=== PATIENT | female | born 1970 | race Caucasian/White ===

== ENCOUNTER 2019-07-25 09:39 | Emergency (ER) | payer OTHER, SELFPAY ==
[2019-07-25 09:50] VITALS: BP 182/96; PULSE 83; RESP 10; TEMP 37.6; O2SAT 100
--- NOTE | 2019-07-25 10:19 | ED.GENADULT ---
HPI - General Adult General Chief complaint: Shortness of Breath/Dyspnea Stated complaint: sore throat, ear pain, fever Time Seen by Provider: 07/25/19 10:05 Source: patient Mode of arrival: ambulatory Limitations: no limitations History of Present Illness HPI narrative: Patient is a 49-year-old female who presents to emergency department for evaluation of upper respiratory symptoms with bilateral ear pain congestion and sore throat subjective fever over the last 4 to 5 days was seen Sunday started on amoxicillin no she continues to have ear pain presents noting that she needs a note for work patient denies any dyspnea. Cough sick contacts works at the [employer]. Denies vomiting or diarrhea Related Data Home Medications Medication Instructions Recorded Confirmed benazepril 07/25/19 Allergies Allergy/AdvReac Type Severity Reaction Status Date / Time Sulfa (Sulfonamide Allergy Anaphylaxis Verified 07/25/19 09:57 Antibiotics) codeine AdvReac Vomiting Verified 07/25/19 09:57 Review of Systems Review of Systems: All systems reviewed & are unremarkable except as noted in HPI and below PMFSH Past Medical History Medical History (Updated 07/25/19 @ 10:25 by Danis Conklin PA-C) Asthma Exam Narrative: Exam Narrative: GENERAL: Well-appearing, well-nourished, and in no acute distress. HEAD: Normocephalic, atraumatic. EYES: PERRLA and EOMI. ENT: Nares clear, no rhinorrhea or epistaxis. Mucous membranes moist. Oropharynx with tonsillar hypertrophy and without exudate or other lesions. Bilateral TMs pearly smith nonbulging NECK: Supple. No adenopathy or masses. CHEST: Clear to auscultation. No respiratory distress. No wheezes rales or rhonchi HEART: Regular rate and rhythm. No murmur heard. Normal peripheral pulses. ABDOMEN: Soft, nontender, nondistended EXTREMITIES: Normal range of motion. No edema. SKIN: Warm, dry, no rash. NEURO: No focal deficits. Alert and oriented x3. PSYCH: Normal mood and affect. Course Course Emergency Course: Patient in the room with likely upper respiratory symptoms could be viral in nature afebrile nontoxic-appearing no distress Vital Signs Vital signs: Vital Signs Temperature 99.6 F 07/25/19 09:50 Pulse Rate 83 07/25/19 09:50 Respiratory Rate 10 L 07/25/19 09:50 Blood Pressure 182/96 H 07/25/19 09:50 Pulse Oximetry 100 07/25/19 09:50 Temperature 99.6 F 07/25/19 09:50 Pulse Rate 83 07/25/19 09:50 Respiratory Rate 10 L 07/25/19 09:50 Blood Pressure 182/96 H 07/25/19 09:50 Pulse Oximetry 100 07/25/19 09:50 Medical Decision Making MDM Narrative Medical decision making narrative: Patient with likely viral syndrome versus allergies advised that she could potentially have Codafed unsure given the array of symptoms given that she does have upper respiratory symptoms advised to self quarantine for 14 days and to follow with primary care provided with reasons to return Vital Signs Vital Signs: Vital Signs Temperature 99.6 F 07/25/19 09:50 Pulse Rate 83 07/25/19 09:50 Respiratory Rate 10 L 07/25/19 09:50 Blood Pressure 182/96 H 07/25/19 09:50 Pulse Oximetry 100 07/25/19 09:50 Temperature 99.6 F 07/25/19 09:50 Pulse Rate 83 07/25/19 09:50 Respiratory Rate 10 L 07/25/19 09:50 Blood Pressure 182/96 H 07/25/19 09:50 Pulse Oximetry 100 07/25/19 09:50 Lab Data Labs: Influenza A Screen Negative Reference Range: Negative Influenza B Screen Negative Reference Range: Negative Strep Screen Presumptive Negative *(Reference Range: Negative)* Discharge Plan Discharge Clinical Impression: Acute upper respiratory infection Patient Disposition: Home, Self-Care Condition: Stable Instructions: Antibiotic Form, Upper Respiratory Infection (ED) Additional Instructions: Follow up with your primary care provider within 14 days. Go to ER f
--- NOTE | 2019-07-25 11:06 | ED.GENADULT ---
HPI - General Adult General Chief complaint: Shortness of Breath/Dyspnea Stated complaint: sore throat, ear pain, fever Time Seen by Provider: 07/25/19 10:05 Source: patient Mode of arrival: ambulatory History of Present Illness HPI narrative: Patient is a 49-year-old female who presents to emergency department for evaluation of Related Data Home Medications Medication Instructions Recorded Confirmed benazepril 07/25/19 Allergies Allergy/AdvReac Type Severity Reaction Status Date / Time Sulfa (Sulfonamide Allergy Anaphylaxis Verified 07/25/19 09:57 Antibiotics) codeine AdvReac Vomiting Verified 07/25/19 09:57 [facility] Past Medical History Medical History (Updated 07/25/19 @ 10:25 by Danis Conklin PA-C) Asthma Course Vital Signs Vital signs: Vital Signs Temperature 99.6 F 07/25/19 09:50 Pulse Rate 83 07/25/19 09:50 Respiratory Rate 10 L 07/25/19 09:50 Blood Pressure 182/96 H 07/25/19 09:50 Pulse Oximetry 100 07/25/19 09:50 Temperature 99.6 F 07/25/19 09:50 Pulse Rate 83 07/25/19 09:50 Respiratory Rate 10 L 07/25/19 09:50 Blood Pressure 182/96 H 07/25/19 09:50 Pulse Oximetry 100 07/25/19 09:50 Medical Decision Making Vital Signs Vital Signs: Vital Signs Temperature 99.6 F 07/25/19 09:50 Pulse Rate 83 07/25/19 09:50 Respiratory Rate 10 L 07/25/19 09:50 Blood Pressure 182/96 H 07/25/19 09:50 Pulse Oximetry 100 07/25/19 09:50 Temperature 99.6 F 07/25/19 09:50 Pulse Rate 83 07/25/19 09:50 Respiratory Rate 10 L 07/25/19 09:50 Blood Pressure 182/96 H 07/25/19 09:50 Pulse Oximetry 100 07/25/19 09:50 Lab Data Labs: Influenza A Screen Negative Reference Range: Negative Influenza B Screen Negative Reference Range: Negative Strep Screen Presumptive Negative *(Reference Range: Negative)* Discharge Plan Discharge Clinical Impression: Acute upper respiratory infection Patient Disposition: Home, Self-Care Condition: Stable Instructions: Antibiotic Form, Upper Respiratory Infection (ED) Additional Instructions: Follow up with your primary care provider within 14 days. Go to ER for shortness of breath, difficulty breathing, chest pain, fever/chills, weakness, nauseau/vomitting, etc. or any other concerns. Stay well-hydrated Take any prescribed medications as directed. Follow patient education sheets If you do not have a drug allergy to tylenol or motrin and can tolerate it then take tylenol or motrin as needed for discomfort/pain. Prescriptions: New montelukast [Singulair] 10 mg tablet 10 mg PO ONCE Qty: 7 RF: 0 cetirizine [24Hour Allergy] 10 mg tablet 10 mg PO DAILY PRN (Reason: allergy symptoms) Qty: 7 RF: 0 No Action benazepril 40 mg Tablet RF: 0 Follow-up/Referrals: UNKNOWN,DOCTOR [Primary Care Provider] - Stand Alone Forms: Work/School Release IP Discharge Date/Time: 07/25/19 10:42
== END 2019-07-25 10:42 | disposition home or self-care (01) ==
PROVIDERS: Emergency Provider Emergency Medicine
DX: J06.9 Acute upper respiratory infection, unspecified (principal); Z20.828 Contact with and (suspected) exposure to other viral communicable diseases
CPT/HCPCS: 87081; 87804; 87880; 99283

== ENCOUNTER 2023-01-15 09:40 | Outpatient (CLI) | payer OTHER, SELFPAY ==
--- NOTE | 2023-01-15 10:30 | NEURO_ITS ---
Impression: Patient reports paresthesias of left hand. # Moderate left Carpal Tunnel Syndrome. # Normal needle/EMG exam. # Clinical correlation recommended Nerve Conduction Studies Anti Sensory Summary Table Stim Site NR Peak (ms) P-T Amp (?V) Site1 Site2 Delta-P (ms) Dist (cm) Dioni (m/s) Left Median Anti Sensory (2-3nd Digit) Wrist 5.3 52.3 Wrist 2-3nd Digit 5.3 14.0 26 Wrist 5.8 39.0 Wrist 2-3nd Digit 5.3 14.0 26 Left Radial Anti Sensory (Base 1st Digit) Wrist 1.7 60.8 Wrist Base 1st Digit 1.7 0.0 Left Ulnar Anti Sensory (5th Digit) Wrist 2.6 52.6 Wrist 5th Digit 2.6 14.0 54 Motor Summary Table Stim Site NR Onset (ms) O-P Amp (mV) Site1 Site2 Delta-0 (ms) Dist (cm) Dioni (m/s) Left Median Motor (Abd Poll Brev) Wrist 4.8 3.4 Elbow Wrist 4.1 22.0 54 Elbow 8.9 4.3 Left Ulnar Motor (Abd Dig Minimi) Wrist 2.2 10.3 A Elbow Wrist 5.3 30.0 57 A Elbow 7.5 7.9 B Elbow Wrist 3.6 20.0 56 B Elbow 5.8 8.6 F Wave Studies NR F-Lat (ms) L-R F-Lat (ms) Left Median (Mrkrs) (Abd Poll Brev) 27.74 Left Ulnar (Mrkrs) (Abd Dig Min) 26.64 EMG Side Muscle Nerve Root Ins Act Fibs Amp Dur Recrt Comment Left 1stDorInt Ulnar C8-T1 Nml Nml Nml Nml Nml Left Ext Indicis Radial (Post Int) C7-8 Nml Nml Nml Nml Nml Left Ext Digitorum Radial (Post Int) C7-8 Nml Nml Nml Nml Nml Left BrachioRad Radial C5-6 Nml Nml Nml Nml Nml Left PronatorTeres Median C6-7 Nml Nml Nml Nml Nml Left Abd Poll Brev Median C8-T1 Nml Nml Nml Nml Nml MTDD
== END 2023-01-15 09:41 | disposition home or self-care (01) ==
PROVIDERS: PCP Family Medicine; Visit Provider Physician Assistant Medical
DX: R20.0 Anesthesia of skin (principal); G56.01 Carpal tunnel syndrome, right upper limb
CPT/HCPCS: 95886; 95909